=== PATIENT | male | born 1945 | race Caucasian/White ===

== ENCOUNTER 2020-12-11 10:45 | Emergency (ER) | payer MEDICARE, SELFPAY ==
[2020-12-11] VITALS (21 sets, daily range): BP systolic 139–194; BP diastolic 91–99; PULSE 43–57; RESP 12–22; TEMP 36.6; O2SAT 96–99
--- NOTE | ~2020-12-11 | XR_ITS ---
EXAMINATION: XR chest 2V DATE: 12/11/2020 11:41 INDICATION: Left arm pain, hypertension TECHNIQUE: PA and lateral views of the chest are obtained. COMPARISON: 12/04/2014 FINDINGS: The lungs are free of acute opacities. There is no pleural effusion or pneumothorax. The ca rdiomediastinal silhouette is normal. There are bridging osteophytes at multiple levels in the spine, consistent with diffuse idiopathic skeletal hyperostosis (DISH). IMPRESSION: 1. No acute cardiopulmonary abnormality. Reviewed, dictated and finalized at location A.
--- NOTE | ~2020-12-11 | XR_ITS ---
EXAMINATION: XR shoulder LT min 2V INDICATION: Left shoulder pain TECHNIQUE: Four views of the left shoulder are submitted. COMPARISON: None FINDINGS: Normal alignment. No fracture. 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 Soft tissues are unremarkable. IMPRESSION: 1. No acute osseous abnormality. Reviewed, dictated and finalized at location A.
--- NOTE | 2020-12-11 10:54 | ECG_ITS ---
Measurements Intervals [place] Rate: 53 P: 42 DC: 172 QRS: 64 QRSD: 105 T: 4 QT: 455 QTc: 431 Interpretive Statements SINUS BRADYCARDIA INCOMPLETE RIGHT BUNDLE BRANCH BLOCK BORDERLINE ST-T WAVE ABNORMALITY- ANTEROLAT/INF LEADS BORDERLINE ECG Electronically Signed On 12-11-2020 16:26:05 CDT by Archie Steve D.O.
[2020-12-11 11:08] LABS: Basophils Absolute Auto 0.1 K/mm3 (0.0-0.1); Basophils Percent Auto 0.9 % (0.2-1.2); Eosinophils Absolute Auto 0.4 K/mm3 (0-0.3); Eosinophils Percent Auto 5.6 % (0-4.4); Hemoglobin 15.4 g/dL (14.0-18.0); Immature Granulocyte Absolute 0.01 K/mm3 (0.00-0.031); Immature Granulocyte Percent A 0.1 % (0-0.5); Lymphocytes Absolute Auto 1.83 K/mm3 (0.9-3.2); Lymphocytes Percent Auto 24.8 % (18.3-44.2); Mean Corpuscular HGB Conc 34.2 g/dl (32-36); Mean Corpuscular Hemoglobin 31.8 pg (26-34); Mean Platelet Volume 10.3 fl (7.4-10.4); Monocytes Absolute Auto 0.5 K/mm3 (0.1-0.6); Monocytes Percent Auto 6.8 % (2.6-8.5); Neutrophils Absolute Auto 4.6 K/mm3 (1.3-6.7); Neutrophils Percent Auto 61.8 % (45.5-73.1); Platelet Count Result 235 k/mm3 (150-375); Red Blood Count 4.84 M/mm3 (4.6-6.20); Red Cell Distribution Width 13.4 % (11.5-14.5); White Blood Count 7.4 K/mm3 (4.5-10.0)
--- NOTE | 2020-12-11 11:15 | ED.RECABL ---
HPI - Recheck/Abnormal Lab/Rx General Chief Complaint: Recheck/Abnormal Lab/Rx Stated Complaint: high bp Time Seen by Provider: 12/11/20 10:51 Source: patient Mode of arrival: ambulatory Limitations: no limitations History of Present Illness HPI narrative: This is a 75 year old male that presents to the ER for hypertension. Reports last night in the middle of the night he started noting some left arm pain. Describes it as aching in nature. He does report it is a little worse when he moves his arm. No recent injuries or trauma. Reports he took his blood pressure at home and it was elevated to 190/100, which prompted him to be seen. He takes metoprolol for blood pressure and has been taking this as prescribed. He did take it this morning. Denies fever, chest pain, shortness of breath, or lower extremity edema. Related Data Home Medications Medication Instructions Recorded Confirmed clopidogrel 75 mg PO DAILY 12/11/20 levothyroxine [Synthroid] 88 mcg PO DAILY 12/11/20 metoprolol tartrate 25 mg PO BID 12/11/20 xhshuwwr-ygr-RE-lycopen-lutein 1 tablet PO DAILY 12/11/20 [Centrum Silver Men] prednisone 5 mg PO DAILY 12/11/20 testosterone [AndroGel] 12/11/20 Allergies Allergy/AdvReac Type Severity Reaction Status Date / Time clindamycin Allergy Unknown Nausea and Verified 10/31/18 16:22 Vomiting Review of Systems Review of Systems: Narrative: CONSTITUTIONAL: Denies fever CARDIOVASCULAR: Denies chest pain, or edema. RESPIRATORY: Denies dyspnea. MUSCULOSKELETAL: Reports myalgia. NEUROLOGIC: Denies numbness, or weakness. All systems reviewed & are unremarkable except as noted in HPI and below PMFSH Past Medical History Medical History (Updated 12/11/20 @ 13:08 by Joan Laura PA-C) History of hyperlipidemia History of hypertension History of hypothyroidism History of peripheral vascular disease Social History Social History (Updated 12/11/20 @ 11:18 by Joan Laura PA-C) Smoking status: Former smoker Exam Narrative: Exam Narrative: GENERAL: Well-appearing, well-nourished, and in no acute distress. HEAD: Normocephalic, atraumatic. EYES: PERRLA and EOMI. ENT: Nares clear, no rhinorrhea or epistaxis. Mucous membranes moist. Oropharynx without tonsillar hypertrophy exudate or other lesions. Bilateral TMs pearly mejias non-bulging NECK: Supple. No adenopathy or masses. No carotid bruits or JVD CHEST: Clear to auscultation. No respiratory distress. No wheezes rales or rhonchi HEART: Regular rate and rhythm. No murmur heard. Normal peripheral pulses. EXTREMITIES: Normal range of motion. No edema, erythema or obvious deformity. Normal sensation. Strength equal in bilateral upper extremities (5/5). Normal radial pulses. Pain with Adames Tan test on the left SKIN: Warm, dry, no rash. NEURO: No focal deficits. Alert and oriented x3. PSYCH: Normal mood and affect Course Consultations Consultation #1: Spoke with patient's primary who would like hydrochlorothiazide added on to hypertension regimen. Patient is to follow-up in clinic. Date: 12/11/20 Time: 13:07 Vital Signs Vital signs: Vital Signs Temperature 97.8 F 12/11/20 10:50 Pulse Rate 56 L 12/11/20 10:50 Respiratory Rate 14 12/11/20 10:50 Blood Pressure 194/99 H 12/11/20 10:50 Pulse Oximetry 99 12/11/20 10:50 Temperature 97.8 F 12/11/20 10:50 Pulse Rate 46 L 12/11/20 12:16 Respiratory Rate 18 12/11/20 12:16 Blood Pressure 154/92 H 12/11/20 12:16 Pulse Oximetry 96 12/11/20 12:30 MDM - Recheck/Abnormal Lab/Rx MDM Narrative Medical decision making narrative: Patient presents emergency department for left arm pain, was also reporting elevated blood pressure. Blood pressure elevated to 190 systolic on arrival, this down trended on its own. Most recent blood pressure 150/97. CBC and metabolic panel without concerning findings. EKG with nonspecific ST changes, his baseline troponin is negative. He
[2020-12-11 11:18] LABS: INR 0.9; Prothrombin Time 12.7 Seconds (11.1-14.7)
[2020-12-11 11:19] LABS: Partial Thromboplastin Time 25.8 SECONDS (22.3-36.8)
[2020-12-11 11:20] LABS: Anion Gap 5 mmol/L (8-16); Blood Urea Nitrogen 19 mg/dL (9-20); Calcium 8.9 mg/dL (8.4-10.2); Carbon Dioxide 33 mmol/L (22-30); Chloride 103 mmol/L (98-107); Estimated CRCL calculation 83 ml/min; Estimated Glomerular Filt Rate > 60; Glucose 98 mg/dL (75-110); Sodium 141 mmol/L (137-145)
[2020-12-11 11:32] LABS: Troponin I < 0.012 ng/mL (0.000-0.034)
== END 2020-12-11 13:27 | disposition home or self-care (01) ==
PROVIDERS: Physician Assistant; Emergency Provider Emergency Medicine
DX: I10 Essential (primary) hypertension (principal); E78.5 Hyperlipidemia, unspecified; E03.9 Hypothyroidism, unspecified; I73.9 Peripheral vascular disease, unspecified; Z87.891 Personal history of nicotine dependence; I45.10 Unspecified right bundle-branch block; R94.31 Abnormal electrocardiogram [ECG] [EKG]; R00.1 Bradycardia, unspecified
CPT/HCPCS: 36415; 71046; 73030; 80048; 84484; 85025; 85610; 85730; 93005; 99284

== ENCOUNTER 2021-07-10 13:39 | Emergency (ER) | payer MEDICARE, SELFPAY ==
[2021-07-10 13:50] VITALS: BP 130/84; PULSE 82; RESP 16; TEMP 37.1; O2SAT 98
--- NOTE | 2021-07-10 13:58 | ED.EAR ---
HPI - Ear Problem General Chief complaint: Ear Stated complaint: Clogged Ears Time Seen by Provider: 07/10/21 14:00 Source: patient, RN notes reviewed and old records reviewed Mode of arrival: ambulatory Limitations: no limitations History of Present Illness HPI Narrative: 76 year old male who presents to [facility] care with complaints of bilateral ears feeling clogged with decreased hearing for 1 week duration.. He states that he has had to have his ears irrigated in the past and he has been unable to get appointment with physician that usually does this for him. He states that his left ear is worse that his right. Patient denies any fevers, chills, or sweats or any other symptoms of illness, denies any dizziness or any pain to his ears. Patient has received COVID immunizations. MD Complaint: decreased hearing Location: bilateral Related Data Home Medications Medication Instructions Recorded Confirmed clopidogrel 75 mg PO DAILY 12/11/20 07/10/21 levothyroxine [Synthroid] 88 mcg PO DAILY 12/11/20 07/10/21 metoprolol tartrate 25 mg PO BID 12/11/20 07/10/21 kbziswgc-shp-DA-lycopen-lutein 1 tablet PO DAILY 12/11/20 07/10/21 [Centrum Silver Men] testosterone [AndroGel] 12/11/20 rosuvastatin 20 mg PO DAILY 07/10/21 07/10/21 Allergies Allergy/AdvReac Type Severity Reaction Status Date / Time clindamycin Allergy Unknown Nausea and Verified 07/10/21 14:05 Vomiting Review of Systems Review of Systems: CONSTITUTIONAL: Denies fever, chills, or sweats. EYES: Denies visual changes, redness, or discharge. ENT: Denies rhinorrhea, congestion, sore throat, or otalgia, positive for clogged ears with decreased hearing CARDIOVASCULAR: Denies chest pain, palpitations, or edema. RESPIRATORY: Denies cough or dyspnea. GASTROINTESTINAL: Denies abdominal pain, nausea, vomiting, or diarrhea. GENITOURINARY: Denies dysuria or hematuria. SKIN: Denies rash or itching. MUSCULOSKELETAL: Denies back pain, joint pain, or myalgia. NEUROLOGIC: Denies headache, numbness, or weakness. PSYCHIATRIC: Denies anxiety or depression. All systems reviewed & are unremarkable except as noted in HPI and below PMFSH Past Medical History Medical History (Updated 07/13/21 @ 14:19 by Jennie Krishnamurthy NP) Asthma COPD (chronic obstructive pulmonary disease) History of hyperlipidemia History of hypertension History of hypothyroidism History of peripheral vascular disease Pneumonia Surgical History Surgical History (Updated 07/13/21 @ 14:24 by Jennie Krishnamurthy NP) No history of previous surgery Family History Family History (Updated 07/13/21 @ 14:19 by Jennie Krishnamurthy NP) Other Heart disease Hypertension Social History Social History (Updated 07/13/21 @ 14:24 by Jennie Krishnamurthy NP) Smoking status: Former smoker Tobacco type: cigarettes Additional smoking assessment comments: quit 14 years ago Alcohol intake: current Alcohol use details: social Substance use: never Living arrangements: with family Gender identity (if verbalized by the patient): Male Comments At time of signature agree with nursing documentation of past medical, surgical, social and family hitory. There is no relevant family history pertinent to presenting complaint. Exam Narrative: GENERAL: Well-appearing, well-nourished, and in no acute distress. HEAD: Normocephalic, atraumatic. EYES: PERRLA and EOMI. ENT: Nares clear, no rhinorrhea or epistaxis. Mucous membranes moist.Bilateral TM's completely covered with impacted cerumen, after irrigation completed and cerumen removed TM's normal with good light reflex and patient verbalizing improved hearing.Throat pink with no lesions or exudates, no tonsil enlargement NECK: Supple.no lymphadenopathy CHEST: Clear to auscultation. No respiratory distress.SAO2 98% on room air, no tachypnea or any shortness of breath noted HEART: Regular rate and rhythm. No murmur heard. Normal peripheral pulses. ABDOMEN: Soft,
== END 2021-07-10 14:24 | disposition home or self-care (01) ==
PROVIDERS: Emergency Provider Registered Nurse
DX: H61.23 Impacted cerumen, bilateral (principal); Z87.891 Personal history of nicotine dependence; J44.9 Chronic obstructive pulmonary disease, unspecified; E78.5 Hyperlipidemia, unspecified; I10 Essential (primary) hypertension; E03.9 Hypothyroidism, unspecified; I73.9 Peripheral vascular disease, unspecified
CPT/HCPCS: 69209; 99212; G0463

== ENCOUNTER 2024-08-12 12:11 | Emergency (ER) | payer MEDICARE, SELFPAY ==
[2024-08-12] VITALS (20 sets, daily range): BP systolic 136–168; BP diastolic 80–103; PULSE 52–65; RESP 14–23; TEMP 36.6; O2SAT 93–97
--- NOTE | ~2024-08-12 | XR_ITS ---
XR shoulder LT min 2V Ordering provider: Chavo Tomlin MD History: . Shoulder pain SINCE FALL X 3 DAYS AGO . Comparison: None. FINDINGS: BONES: No acute fracture or dislocation. JOINT SPACES: The acromioclavicular joint is normal. The glenohumeral joint is normal. SOFT TISSUES: Small bony fragment seen near to the greater tuberosity suggestive of calcific tendinit is. Old fracture versus synovial chondromatosis is not excluded. Acute fracture is less likely. IMPRESSION: No definite acute osseous abnormality left shoulder. Possible calcific tendinitis versus old chip fra cture or synovial chondromatosis. Acute fracture is less likely. Clinical correlation and follow-up a dvised. Reviewed, dictated and finalized at location A. MAKER IMPRESSION: No definite acute osseous abnormality left shoulder. Possible calcific tendinit is versus old chip fracture or synovial chondromatosis. Acute fracture is less likely. Clinical correlation and follow-up advised.
--- NOTE | ~2024-08-12 | CT_ITS ---
EXAMINATION: CT brain wo con DATE: 08/12/2024 16:32 INDICATION: Fall TECHNIQUE: Computed tomography (CT) of the head was performed without intravenous contrast. Sagittal and coronal reconstructions were performed. The mA was adjusted according to patient size. Iterative reconstruction technique was employed. The dose-length product was 681.00 mGy-cm. COMPARISON: head CT dated 10/31/2018 FINDINGS: No fracture. No acute intracranial hemorrhage, acute infarction or abnormal extra axial fluid collect ion. Mild scattered white matter hypoattenuation consistent with chronic small vessel ischemic diseas e. Ventricles are normal and symmetric. No intracranial mass/mass effect. 1.2 cm subdermal cystic les ion posterior to the upper cervical spine most likely an epidermoid/sebaceous cyst. Moderate mucosal thickening the bilateral ethmoid sinuses. And small amount of mucus/fluid in the dependent bilateral maxillary sinuses. The orbits and mastoid air cells are normal. Intracranial calcified cerebral ather osclerosis is noted. IMPRESSION: 1. Normal aging brain. No fracture or acute intracranial process. Reviewed, dictated and finalized at location A. ORT ARCHITECT
--- NOTE | ~2024-08-12 | CT_ITS ---
CT cervical spine wo con Ordering provider: Chavo Tomlin MD History: . Fall . Comparison: None. Technique: CT of the cervical spine was performed without contrast. Sagittal and coronal reformatted images were also obtained and reviewed. Automated exposure control and iterative reconstruction carey hnique were employed. The dose-length product was 593.94 mGy-cm. FINDINGS: VERTEBRAE: No subluxation or acute fracture. The occipital condyles are intact. Hypodensity is seen in C3 anteriorly differential include degenerative cyst versus metastatic lesions versus hemangioma. Follow-up advised. DISC SPACES: Narrowing of the disc C4-C5, C5-C6 and C6-C7. Multilevel facet joint disease. Multilevel uncovertebral joint osteoarthritic changes. Bilateral narrowing of the foramina at the level of C4-C 5. PARASPINOUS SOFT TISSUES: Normal. IMPRESSION: No acute osseous abnormality cervical spine. Multilevel degenerative disc. Reviewed, dictated and finalized at location A. E PAINTER
--- NOTE | ~2024-08-12 | XR_ITS ---
EXAMINATION: XR chest 2V DATE: 08/12/2024 13:00 INDICATION: Left shoulder pain. Hypertension. TECHNIQUE: Frontal and lateral views of the chest were obtained. COMPARISON: Chest 2 views 12/11/2020 FINDINGS: There is no pneumonia, pleural effusion, or pneumothorax. The heart size is normal. There i s a prominent left pericardial fat pad. IMPRESSION: 1. No acute cardiopulmonary disease. Reviewed, dictated and finalized at location A. SCREEN WORKER
--- NOTE | 2024-08-12 12:12 | ECG_ITS ---
Test Date: 2024-08-12 12:19:46 Measurements Intervals [place] Rate: 59 P: 18 NM: 221 QRS: 39 QRSD: 105 T: -5 QT: 398 QTc: 395 Interpretive Statements SINUS BRADYCARDIA WITH FIRST DEGREE AV BLOCK INCOMPLETE RIGHT BUNDLE BRANCH BLOCK CONSIDER INFERIOR INFARCT, AGE INDETERMINATE BASELINE ARTIFACT- I, II, III, AVR, AVL, AVF, V1-V2 ABNORMAL ECG No previous ECG available for comparison Electronically Signed On 08-12-2024 13:23:23 RUG RENOVATOR by Archie Steve D.O.
[2024-08-12 12:40] LABS: Basophils Absolute Auto 0.1 K/mm3 (0.0-0.1); Basophils Percent Auto 1.1 % (0.2-1.2); Eosinophils Absolute Auto 0.3 K/mm3 (0-0.3); Eosinophils Percent Auto 4.2 % (0-4.4); Hematocrit 46.5 % (42.0-52.0); Immature Granulocyte Absolute 0.03 K/mm3 (0.00-0.031); Immature Granulocyte Percent A 0.5 % (0-0.5); Lymphocytes Absolute Auto 1.45 K/mm3 (0.9-3.2); Lymphocytes Percent Auto 22.4 % (18.3-44.2); Mean Corpuscular HGB Conc 34.4 g/dl (32-36); Mean Corpuscular Hemoglobin 31.8 pg (26-34); Mean Corpuscular Volume 92.4 fl (80-100); Mean Platelet Volume 9.8 fl (7.4-10.4); Monocytes Absolute Auto 0.5 K/mm3 (0.1-0.6); Monocytes Percent Auto 8.3 % (2.6-8.5); Neutrophils Absolute Auto 4.1 K/mm3 (1.3-6.7); Neutrophils Percent Auto 63.5 % (45.5-73.1); Platelet Count Result 244 k/mm3 (150-375); Red Blood Count 5.03 M/mm3 (4.6-6.20); Red Cell Distribution Width 14.5 % (11.5-14.5); White Blood Count 6.5 K/mm3 (4.5-10.0)
[2024-08-12 12:52] LABS: Alanine Aminotransferase 34 U/L (6-50); Albumin Level 4.3 g/dL (3.5-5.1); Alkaline Phosphatase 64 U/L (38-126); Anion Gap 7 mmol/L (4-12); Aspartate Amino Transferase 30 U/L (17-59); Bilirubin,Total 0.7 mg/dL (0.2-1.3); Blood Urea Nitrogen 15 mg/dL (9-20); Calcium 8.6 mg/dL (8.4-10.2); Carbon Dioxide 24 mmol/L (22-30); Chloride 104 mmol/L (98-107); Estimated CRCL calculation 97 ml/min; Estimated Glomerular Filt Rate > 60; Glucose 125 mg/dL (65-110); INR 0.9; Lipase 59 U/L (23-300); Partial Thromboplastin Time 26.9 Seconds (22.3-36.8); Potassium 3.9 mmol/L (3.4-5.0); Prothrombin Time 12.9 Seconds (11.1-14.7); Sodium 135 mmol/L (137-145)
[2024-08-12 13:03] LABS: Troponin I < 0.012 ng/mL (0.000-0.034)
--- NOTE | 2024-08-12 16:54 | ED.GENADULT ---
HPI - General Adult General Chief complaint: Extremity Injury, Upper Stated complaint: left shoulder pain Time Seen by Provider: 08/12/24 13:44 History of Present Illness HPI narrative: This is a 79-year-old male presenting ED with chief complaint of left shoulder pain. Patient says that he was sitting in his office chair 2 weeks ago when he fell backwards striking his head and his right shoulder. Then he has had neck pain and right shoulder pain. However last night he developed pain in his lateral deltoid on the left. It kept him from sleeping. He did take some Tylenol and the pain has improved throughout the day. He is currently pain free. Pain is not worse with movement. He has not had any chest pain difficulty breathing, association with exertion or vomiting. Related Data Home Medications Medication Instructions Recorded Confirmed clopidogrel 75 mg tablet 75 mg PO DAILY 12/11/20 07/10/21 levothyroxine 88 mcg tablet 88 mcg PO DAILY 12/11/20 07/10/21 (Synthroid) metoprolol tartrate 25 mg tablet 25 mg PO BID 12/11/20 07/10/21 jimjwlvj-vg-ouncf 300 mcg-K 60 1 tablet PO DAILY 12/11/20 07/10/21 mcg-lycop 600 mcg-lutein 300 mcg tablet (Centrum Silver Men) testosterone 1.62 % (20.25 mg/1.25 12/11/20 gram) transdermal gel packet (AndroGel) rosuvastatin 20 mg tablet 20 mg PO DAILY 07/10/21 07/10/21 Allergies Allergy/AdvReac Type Severity Reaction Status Date / Time clindamycin AdvReac Unknown Nausea and Verified 08/12/24 12:24 Vomiting [facility] Past Medical History Medical History (Updated 08/12/24 @ 17:24 by Chavo Tomlin MD) Asthma COPD (chronic obstructive pulmonary disease) History of hyperlipidemia History of hypertension History of hypothyroidism History of peripheral vascular disease Pneumonia Surgical History Surgical History (Updated 07/13/21 @ 14:24 by Jennie Krishnamurthy NP) No history of previous surgery Family History Family History (Updated 07/13/21 @ 14:19 by Jennie Krishnamurthy NP) Other Heart disease Hypertension Social History Social History (Updated 07/13/21 @ 14:24 by Jennie Krishnamurthy NP) Smoking status: Former smoker Tobacco type: cigarettes Additional smoking assessment comments: quit 14 years ago Alcohol intake: current Alcohol use details: social Substance use: never Living arrangements: with family Gender identity (if verbalized by the patient): Male Exam Narrative: APPEARANCE: No apparent distress. Head: atraumatic. EYES: EOMI, NOSE: Atraumatic NECK: Trachea midline, no midline cervical pain, no pain with full range of motion of the neck or axial loading. RESPIRATORY: No increased rate of breathing CARDIOVASCULAR: RRR, ABDOMINAL: Non-distended MUSCULOSKELETAL: Focal exam of the left shoulder reveal no overlying skin changes. No tenderness to palpation. Radian ulnar and median nerve motor function intact. Pulses strong. Sensation intact. NEURO: Alert. Moving 4/4 extremities SKIN:: Warm, dry. Normal color PSYCHIATRIC: Normal affect Course Vital Signs Vital signs: Vital Signs Temperature 97.8 F 08/12/24 12:22 Pulse Rate 60 08/12/24 12:22 Respiratory Rate 18 08/12/24 12:22 Blood Pressure 168/103 H 08/12/24 12:22 Pulse Oximetry 95 08/12/24 12:22 Oxygen Delivery Room Air 08/12/24 12:22 Temperature 97.8 F 08/12/24 13:33 Pulse Rate 65 08/12/24 17:16 Respiratory Rate 17 08/12/24 17:16 Blood Pressure 139/89 08/12/24 13:46 Pulse Oximetry 93 08/12/24 17:16 Oxygen Delivery Room Air 08/12/24 12:22 Medical Decision Making [facility] Narrative Medical decision making narrative: -Course:79-year-old male presenting with isolated left shoulder pain. Patient's symptoms have improved about things that have any pain at this time. Patient was concerned about an SC his chest pain workup is negative with 2- troponins and nonischemic EKG. shoulder x-ray showed possible calcific tendinitis worse chip fracture versus synovial chondromatosis. Cervical radiculopathy in a C4-C5 distribution is also possible. However no emergent cause of shoulder pain were discovered. Patient has time for follow-up his primary care physician for further managementPatient was informed of his results. He has been instructed to take a course of Tylenol for improvement. He can return any time severe pain weakness to the arm or would like re-evaluation. -DDX includes but is not limited to: ACS, muscle strain, calcific tendinitis, impingement syndrome, cervical radiculopathy -Co-morbidities complicating care: hypertension, diabetes, high cholesterol, hypothyroid -Independent interpretation of studies: labs and imaging reviewed Independent EKG interpretation: Rhythm [sinus], Rate [59], [place] -[normal], [place] -[normal], QRS [narrow], QTC [normal], T waves -[negative for concerning inversions], ST Segments - [Negative for concerning elevations] Final interpretations: [Normal Sinus Rhythm] -Shared decision making / Disposition:discharged Vital Signs Vital Signs: Vital Signs Temperature 97.8 F 08/12/24 12:22 Pulse Rate 60 08/12/24 12:22 Respiratory Rate 18 08/12/24 12:22 Blood Pressure 168/103 H 08/12/24 12:22 Pulse Oximetry 95 08/12/24 12:22 Oxygen Delivery Room Air 08/12/24 12:22 Temperature 97.8 F 08/12/24 13:33 Pulse Rate 65 08/12/24 17:16 Respiratory Rate 17 08/12/24 17:16 Blood Pressure 139/89 08/12/24 13:46 Pulse Oximetry 93 08/12/24 17:16 Oxygen Delivery Room Air 08/12/24 12:22 Lab Data 08/12/24 12:33 08/12/24 12:33 Labs: Lab Results 08/12/24 08/12/24 Range/Units 12:33 17:07 WBC 6.5 (4.5-10.0) K/mm3 RBC 5.03 (4.6-6.20) M/mm3 Hgb 16.0 (14.0-18.0) g/dL Hct 46.5 (42.0-52.0) % MCV 92.4 (80-100) fl MCH 31.8 (26-34) pg MCHC 34.4 (32-36) g/dl RDW 14.5 (11.5-14.5) % Plt Count 244 (150-375) k/mm3 MPV 9.8 (7.4-10.4) fl Immature Gran % (Auto) 0.5 (0-0.5) % Neut % (Auto) 63.5 (45.5-73.1) % Lymph % (Auto) 22.4 (18.3-44.2) % [place] % (Auto) 8.3 (2.6-8.5) % Eos % (Auto) 4.2 (0-4.4) % Baso % (Auto) 1.1 (0.2-1.2) % Lymph # (Auto) 1.45 (0.9-3.2) K/mm3 [place] # (Auto) 0.5 (0.1-0.6) K/mm3 Eos # (Auto) 0.3 (0-0.3) K/mm3 Baso # (Auto) 0.1 (0.0-0.1) K/mm3 Abs Immat Gran (auto) 0.03 (0.00-0.031) K/mm3 Absolute Neuts (auto) 4.1 (1.3-6.7) K/mm3 Absolute Nucleated RBC 0.000 (0.0-0.012) K/mm3 Nucleated RBC % 0.0 (0.0-0.2) % PT 12.9 (11.1-14.7) Seconds INR 0.9 APTT 26.9 (22.3-36.8) Seconds Sodium 135 L (137-145) mmol/L Potassium 3.9 (3.4-5.0) mmol/L Chloride 104 (98-107) mmol/L Carbon Dioxide 24 (22-30) mmol/L Anion Gap 7 (4-12) mmol/L BUN 15 (9-20) mg/dL Creatinine 0.80 (0.7-1.3) mg/dL Estim Creat Clear Calc 97 ml/min Estimated GFR > 60 (59 - ) Glucose 125 H (65-110) mg/dL Calcium 8.6 (8.4-10.2) mg/dL Total Bilirubin 0.7 (0.2-1.3) mg/dL AST 30 (17-59) U/L ALT 34 (6-50) U/L Alkaline Phosphatase 64 (38-126) U/L Troponin I < 0.012 < 0.012 (0.000-0.034) ng/mL Total Protein 7.0 (6.3-8.2) g/dL Albumin 4.3 (3.5-5.1) g/dL Lipase 59 (23-300) U/L Discharge Plan Discharge Clinical Impression: Acute shoulder pain Patient Disposition: Home, Self-Care Condition: Stable Instructions: Antibiotic Form, Shoulder Pain (ED) Additional Instructions: You were seen emergency department for shoulder pain. Your workup here did not reveal a definitive cause although calcific tendinitis, cervical radiculopathy and muscle strain among others are all possible. Please take Tylenol for pain. Please follow-up with your primary care physician for further management. Return if you develop severe pain fevers or weakness in your arm. Prescriptions: No Action rosuvastatin 20 mg tablet 20 mg PO DAILY clopidogrel 75 mg Tablet 75 mg PO DAILY levothyroxine [Synthroid] 88 mcg Tablet 88 mcg PO DAILY metoprolol tartrate 25 mg Tablet 25 mg PO BID Centrum Silver Men 300-600-300 mcg Tablet 1 tablet PO DAILY testosterone [AndroGel] 1.62 % (20.25 mg/1.25 gram) Gel In Packet hydrochlorothiazide 12.5 mg tablet 12.5 mg PO DAILY 7 Days Qty: 7 0RF Follow-up/Referrals: UNKNOWN,DOCTOR [Primary Care Provider] -
--- NOTE | 2024-08-12 17:33 | ECG_ITS ---
Test Date: 2024-08-12 17:36:47 Measurements Intervals [place] Rate: 58 P: 15 SC: 218 QRS: 45 QRSD: 97 T: 9 QT: 405 QTc: 400 Interpretive Statements SINUS BRADYCARDIA WITH FIRST DEGREE AV BLOCK BASELINE ARTIFACT- I, II, III, AVR, AVL, AVF BORDERLINE ECG Compared to ECG 08/12/2024 12:19:46 NO SIGNIFICANT CHANGE Electronically Signed On 08-12-2024 18:19:05 OCEAN FORWARDER by Archie Steve D.O.
[2024-08-12 17:35] LABS: Troponin I < 0.012 ng/mL (0.000-0.034)
== END 2024-08-12 18:14 | disposition home or self-care (01) ==
PROVIDERS: Emergency Provider Emergency Medicine
DX: M25.512 Pain in left shoulder (principal); J44.9 Chronic obstructive pulmonary disease, unspecified; I10 Essential (primary) hypertension; I73.9 Peripheral vascular disease, unspecified; E11.9 Type 2 diabetes mellitus without complications; E03.9 Hypothyroidism, unspecified; E78.5 Hyperlipidemia, unspecified; Z87.01 Personal history of pneumonia (recurrent); Z87.891 Personal history of nicotine dependence; Z79.02 Long term (current) use of antithrombotics/antiplatelets; Z79.899 Other long term (current) drug therapy; R00.1 Bradycardia, unspecified; I45.10 Unspecified right bundle-branch block; R94.31 Abnormal electrocardiogram [ECG] [EKG]; M50.321 Other cervical disc degeneration at C4-C5 level
CPT/HCPCS: 36415; 70450; 71046; 72125; 73030; 80053; 83690; 84484; 85025; 85610; 85730; 93005; 99284